=== PATIENT | female | born 1965 ===

== ENCOUNTER 2016-08-13 06:55 | Day surgery (SDC) | payer MEDICAID ==
[2016-08-07 09:50] VITALS: BMI 21.9
[~2016-08-13 06:55] MED LIST: Lactated Ringer's 500 ML IV ONE; Phenylephrine 2.5% Opht Soln OS SCH; Tropicamide 1% Opht SOLUTION OS SCH; acetaZOLAMIDE 500 mg SR Cap PO ONE
[2016-08-13] MEDS ORDERED: Lactated Ringer's 500 ML IV ONE ×2 (07:22→10:45)
[2016-08-13] MEDS: Lidocaine 2% Inj (20ml) ONE ×2 (09:45→10:19)
[2016-08-13] MEDS: Povidone Iodine Ophthalmic 5% Soln ONE ×2 (09:45→10:19)
[2016-08-13] MEDS: Hyaluronidase Human, Recombi 150 U/ML VIAL ONE ×2 (09:45→10:19)
[2016-08-13] MEDS: Chondroitin/Hyaluronate Opth Syringe KIT (0.55 ml-0.5 ml) IO ONE ×2 (09:46→10:29)
[2016-08-13] MEDS: Tobramycin/Dexamethasone OPHT OINT ONE ×2 (09:46→10:40)
[2016-08-13] MEDS: Carbachol 0.01% IO ONE ×2 (09:46→10:39)
[2016-08-13] MEDS ORDERED: Midazolam 2 MG/2 ML VIAL ONE (10:12)
[2016-08-13] MEDS ORDERED: acetaZOLAMIDE 500 mg SR Cap PO ONE (10:40)
[2016-08-13 11:36] VITALS: O2SAT 98
[2016-08-13 12:00] VITALS: BP 98/60; PULSE 69; RESP 16; TEMP 97.9
--- NOTE | 2016-08-13 12:20 | OP ---
PROCEDURE DATE: 08/13/2016 PREOPERATIVE DIAGNOSIS: CATARACT LEFT EYE. POSTOPERATIVE DIAGNOSIS: CATARACT LEFT EYE. OPERATIVE PROCEDURE: PHACOEMULSIFICATION LEFT EYE, INSERTION OF POSTERIOR CHAMBER IMPLANT. SURGEON: Dr. Grier CO-SURGEON: Dr. Griggs ANESTHESIA TYPE: LOCAL INTRAVENOUS SEDATION. PROCEDURE: The patient was brought into the operating room, placed in supine position, prepped and dr aped in the usual fashion for ophthalmic surgery. Lid speculum inserted, lids and exposin g globe. A side port incision was made superiorly and inferiorly with a disposable sharp blade. Ant erior chamber was filled with Viscoat. A near clear corneal incision was made temporally with a 2.75 millimeter keratome. Capsulorrhexis was then performed with Utrata forceps. Hydrodissection hilda d out with balanced salt solution. Nucleus was phacoemulsified. Remaining cortical fragments were r emoved with a split irrigation and aspiration system. The capsular sac was filled with Provisc. A p osterior chamber lens was then injected into the capsular sac and rotated into horizontal position. Provisc was aspirated out of the anterior chamber. The pupil was constricted with Miochol. The woun d was found to be watertight. Topical Betadine, Timoptic and TobraDex ointment and pressure patch we re applied. The patient tolerated the procedure well. Dann Grier MD cc: [id number] TT: 08/13/2016 12:19:39 sn
== END 2016-08-13 11:58 | disposition home or self-care (01) ==
LOC: C.SDS 06:55
PROVIDERS: ATTEND Ophthalmology
DX: H26.9 Unspecified cataract (principal)
CPT/HCPCS: 66984; J2250; J3010; J3470; J7120